=== PATIENT | male | born 1950 | race Caucasian/White ===

== ENCOUNTER 2018-08-11 11:54 | Emergency (ER) | payer MEDICARE, MEDICAID ==
[~2018-08-11] VITALS: Ht 175.3 cm; Wt 132.4 kg
[2018-08-11 12:07] VITALS: Ht 175.3 cm; Wt 132.4 kg
[2018-08-11 13:36] VITALS: BP 138/60
== END 2018-08-11 13:36 | disposition home or self-care (01) ==
LOC: ED 11:54
DX: E11.621 Type 2 diabetes mellitus with foot ulcer (principal); L97.529 Non-pressure chronic ulcer of other part of left foot with unspecified severity; I10 Essential (primary) hypertension; Z88.8 Allergy status to other drugs, medicaments and biological substances
CPT/HCPCS: Q0092

== ENCOUNTER 2018-12-12 12:53 | Emergency (ER) | payer BC ==
[~2018-12-12] VITALS: Ht 175.3 cm; Wt 132.0 kg
[2018-12-12 13:07] VITALS: Ht 175.3 cm; Wt 132.0 kg
[2018-12-12 17:04] LABS: BASOPHIL % 0.3 % (0-2); PLATELET COUNT 341 x10^3mcL (130-400)
[2018-12-12 17:11] LABS: CALCIUM 8.7 mg/dL (8.5-10.1); CARBON DIOXIDE 28.1 mmol/L (21-32); CHLORIDE SERUM 102 mmol/L (98-107); CREATININE SERUM 1.1 mg/dL (0.7-1.3); GFR1 > 60 mL/min; GLUCOSE SERUM 160 mg/dL (74-106); SODIUM SERUM 139 mmol/L (136-145)
[2018-12-12 17:14] LABS: RED CELL DISTRIBUTION WIDTH 15.8 % (11.5-14.5)
[2018-12-12 17:16] LABS: ALBUMIN 3.6 g/dL (3.4-5.0); ALKALINE PHOSPHATASE 89 U/L (46-116); ALT/SGPT 35 U/L (16-63); AST/SGOT 22 U/L (15-37); BILIRUBIN TOTAL 0.4 mg/dL (0.20-1.00); TOTAL PROTEIN, SERUM 7.9 g/dL (6.4-8.2)
[2018-12-12 19:36] LABS: UA SPECIFIC GRAVITY 1.015 (1.005-1.035); microscopic required? YES; urine erythrocyte TRACE (NEGATIVE)
[2018-12-12 19:37] VITALS: BP 148/84
[2018-12-12 19:42] LABS: AMPHETAMINE QUAL UR NONE DETECTED (See below)
== END 2018-12-12 19:37 | disposition home or self-care (01) ==
LOC: ED 12:53
PROVIDERS: Emergency Medicine
DX: R22.43 Localized swelling, mass and lump, lower limb, bilateral (principal); R80.9 Proteinuria, unspecified; J45.909 Unspecified asthma, uncomplicated; I10 Essential (primary) hypertension; E11.9 Type 2 diabetes mellitus without complications; Z88.8 Allergy status to other drugs, medicaments and biological substances
CPT/HCPCS: 36415; 83880; Q0092

== ENCOUNTER 2019-01-02 10:12 | Emergency (ER) | payer OTHER, MEDICAID ==
[~2019-01-02] VITALS: Ht 172.7 cm; Wt 132.0 kg
[2019-01-02 10:24] VITALS: Ht 172.7 cm; Wt 132.0 kg
[2019-01-02 14:47] LABS: BASOPHIL % 0.3 % (0-2); PLATELET COUNT 313 x10^3mcL (130-400)
[2019-01-02 14:51] LABS: RED CELL DISTRIBUTION WIDTH 15.9 % (11.5-14.5)
[2019-01-02 14:59] LABS: CALCIUM 8.2 mg/dL (8.5-10.1); CARBON DIOXIDE 27.6 mmol/L (21-32); CHLORIDE SERUM 107 mmol/L (98-107); CREATININE SERUM 1.2 mg/dL (0.7-1.3); GFR1 > 60 mL/min; GLUCOSE SERUM 142 mg/dL (74-106); SODIUM SERUM 140 mmol/L (136-145)
[2019-01-02 15:06] LABS: ALBUMIN 3.6 g/dL (3.4-5.0); ALKALINE PHOSPHATASE 70 U/L (46-116); ALT/SGPT 32 U/L (16-63); AST/SGOT 19 U/L (15-37); BILIRUBIN TOTAL 0.44 mg/dL (0.20-1.00); LIPASE 145 IU/L (73-393); TOTAL PROTEIN, SERUM 7.1 g/dL (6.4-8.2)
[2019-01-03 06:55] VITALS: BP 153/86
== END 2019-01-03 06:55 | disposition short-term general hospital (02) ==
LOC: ED 10:12
PROVIDERS: Emergency Medicine
DX: K59.00 Constipation, unspecified (principal); R53.1 Weakness; E11.9 Type 2 diabetes mellitus without complications; J45.909 Unspecified asthma, uncomplicated; I10 Essential (primary) hypertension; Z89.431 Acquired absence of right foot; Z75.2 Other waiting period for investigation and treatment; Z88.8 Allergy status to other drugs, medicaments and biological substances
CPT/HCPCS: 36415; J1885

== ENCOUNTER 2019-01-25 16:47 | Observation (INO) | payer OTHER, MEDICAID ==
[~2019-01-25] VITALS: Ht 177.8 cm; Wt 124.0 kg
[2019-01-25 16:57] VITALS: Ht 177.8 cm; Wt 124.0 kg
--- NOTE | 2019-01-25 17:25 | NUR ---
PT ARRIVED TO ED WITH DRY FECES TO BUTTOCK, LEGS, ABDOMEN AND PERINEAL AREA. PT CLEANED, GOOD PERICARE PROVIDED. PT IS MORBIDLY OBESE AND HAS REDNESS, DRYNESS DISCOLORATION UNDER FOLDS OF ABDOMEN, PT ALSO HAS SCATTERED DRY SCABS NOTED TO BILATERAL LEGS. PT WAS ABLE TO ASSIST WITH TURNING IN BED WHILE CLEANING.
[2019-01-25 17:39] LABS: BASOPHIL % 0.2 % (0-2); PLATELET COUNT 348 x10^3mcL (130-400); RED CELL DISTRIBUTION WIDTH 17.2 % (11.5-14.5)
--- NOTE | 2019-01-25 17:55 | NUR ---
PORTABLE X-RAY IN PROGRESS AT BEDSIDE.
[2019-01-25 18:00] LABS: CALCIUM 8.1 mg/dL (8.5-10.1); CARBON DIOXIDE 21.5 mmol/L (21-32); CHLORIDE SERUM 104 mmol/L (98-107); CREATININE SERUM 1.2 mg/dL (0.7-1.3); GFR1 > 60 mL/min; GLUCOSE SERUM 216 mg/dL (74-106); SODIUM SERUM 139 mmol/L (136-145)
[2019-01-25 18:05] LABS: ALBUMIN 3.6 g/dL (3.4-5.0); ALKALINE PHOSPHATASE 83 U/L (46-116); ALT/SGPT 29 U/L (16-63); AST/SGOT 15 U/L (15-37); BILIRUBIN TOTAL 0.3 mg/dL (0.20-1.00); TOTAL PROTEIN, SERUM 7.8 g/dL (6.4-8.2)
[2019-01-25 18:21] LABS: FREE T4 1.25 ng/dL (0.76-1.46); FREE THYROXINE INDEX 2.8 ug/dL (1.4-4.5); T4(THYROXINE) 7.7 ug/dL (4.7-13.3)
[2019-01-25 18:22] LABS: T3 TOTAL 0.84 ng/mL
[2019-01-25 18:24] LABS: ERYTHROCYTE SED RATE 29 mm/hr (0-20)
--- NOTE | 2019-01-25 18:44 | NUR ---
PT PROVIDED WITH SANDWICH AND DIET SODA PER REQUEST, PER DR. MORRISON PT OKAY TO EAT.
[2019-01-25 18:56] LABS: CK-MB 1.9 ng/mL (0-3.6)
--- NOTE | 2019-01-25 19:09 | NUR ---
REPORT GIVEN TO LUNA BECERRA.
--- NOTE | 2019-01-25 19:10 | NUR ---
REPORT RECEIVED FROM JOLENE BECERRA I WILL BE RESUMING CARE OF PT AT THIS TIME
--- NOTE | 2019-01-25 19:10 | NUR ---
PT REMINDED TO PROVIDE URINE SPECIMEN HARSHA
--- NOTE | 2019-01-25 20:16 | NUR ---
PT DAUGHTER LEFT CONTACT INFORMATION. JAMES TO BE CONTACTED AT [phone]. 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
--- NOTE | 2019-01-25 20:17 | NUR ---
PT IN POSITION OF COMFORT RESPS E/U
--- NOTE | 2019-01-25 21:00 | NUR ---
PT REMINDED TO PROVIDED URINE SPECIMEN PT STATED "I WILL TRY AGAIN BECAUSE I REALLY DON'T WANT A STRAIGHT CATH I HAVE HAD ONE BEFORE AND THEY HURT"
--- NOTE | 2019-01-25 21:20 | NUR ---
PT IN POSITION OF COMFORT RESPS E/U WATER PROVIDED
[2019-01-25] MEDS ORDERED: APAP500 MG PO (21:34)
[2019-01-25] MEDS ORDERED: ALENDRONATE SOD70 M2 PO (21:35)
[2019-01-25] MEDS ORDERED: ASPIRIN ADULT L81 M5 PO (21:36)
[2019-01-25] MEDS ORDERED: NOR10 PO (21:36)
[2019-01-25] MEDS ORDERED: LIPI10 PO (21:37)
[2019-01-25] MEDS ORDERED: CALMOSEPTINE O3.5 GM TP (21:38)
[2019-01-25] MEDS ORDERED: DICLOFENAC SODI75 MG PO (21:39)
[2019-01-25] MEDS ORDERED: FUROSEMIDE40 MG PO (21:39)
[2019-01-25] MEDS ORDERED: COLACE100 MG PO (21:39)
[2019-01-25] MEDS ORDERED: CARVEDILOL12.5 M1 PO (21:39)
[2019-01-25] MEDS ORDERED: NORCO1 TA2 PO (21:40)
[2019-01-25] MEDS ORDERED: ZESTRIL40 MG PO (21:40)
[2019-01-25] MEDS ORDERED: CLARITIN10 MG PO (21:40)
[2019-01-25] MEDS ORDERED: NEU300 PO (21:40)
[2019-01-25] MEDS ORDERED: JANUVIA100 M1 PO (21:41)
[2019-01-25] MEDS ORDERED: GOOD SENSE OMEP20 MG PO (21:41)
[2019-01-25] MEDS ORDERED: D3-50001 TAB PO (21:42)
[2019-01-25 22:27] VITALS: BP 110/61
--- NOTE | 2019-01-25 22:33 | NUR ---
RECEIVED PT FROM ED VIA [facility]GH[facility]. ORIETNED PT TO ROOM AND SURROUNDINGS. IV NOTED TO LFA PATENT AND INTACT. INSTRUCTED PT ON THE USE OF CALL LIGHT FOR ASSISTANCE. ENDORSED PT TO PRIMARY NURSE ANNA
--- NOTE | 2019-01-26 00:01 | NUR ---
RECIEVED PT FROM SURU RN IN NO ACUTE DISTRESS. MED SURG. IV TO LFA, PATENT AND INFUSING. PLACED ON AIR MATRESS. ORIENTED TO ROOM. BED IN LOWEST POSITION, 2 SIDE RAILS UP, CALL LIGHT IN REACH. INSTRUCTED TO CALL FOR ASSISTANCE.
[2019-01-26 02:30] LABS: UA SPECIFIC GRAVITY 1.015 (1.005-1.035); microscopic required? NO; urine erythrocyte NEGATIVE (NEGATIVE)
[2019-01-26 04:51] VITALS: BP 137/83
--- NOTE | 2019-01-26 06:09 | NUR ---
NO ACUTE CHANGES. NO ACUTE DISTRESS NOTED. WILL ENDORSE TO ONCOMING RN.
--- NOTE | 2019-01-26 07:53 | NUR ---
AAO TIMES 4. MED SURG PATIENT. LUNGS CTA. NO SOB. O2 SAT ON RA 99%. BS'S ACTIVE TIMES 4. WITH GENERALIZED WEAKNESS. OBESE. ON AIR MATTRESS. OPTIFOAM TO BUTTOCKS. TURNING Q 2 HOURS. COOPERATIVE.
[2019-01-26 09:00] VITALS: BP 126/90
[2019-01-26 14:06] VITALS: BP 126/90
--- NOTE | 2019-01-26 16:03 | NUR ---
REPORT WAS GIVEN TO [facility] AT [facility] AT PHONE # [phone].
[2019-01-26 16:47] VITALS: BP 135/88
--- NOTE | 2019-01-26 17:50 | NUR ---
AAO TIMES 4. GAVE HIM DISCHARGE INSTRUCTIONS, AND HE SIGNED THEM. HER VERBALIZED "I UNDERSTAND" AND KNOWS HE IS BEING TRANSFERRED. HIS DAUGHTER IS AWARE OF THE TRANSFER AND APPROVES, AND IS THANKFUL HE WILL GO GET PHYSICAL THERAPY AT [facility]. NO TELE. MED SURG PATIENT. SALINE LOCK DC'D, HE WONT NEED IT AT [facility]. NO C/O PAIN. NO SOB. ON AIR MATTRESS.
--- NOTE | 2019-01-26 20:00 | NUR ---
PT A/A/O X4. DENIES DIZZINESS AND HEADACHE. BREATH SOUNDS CLEAR. BREATHING EVEN AND UNLABORED ON ROOM AIR. DENIES CHEST PAIN AND PRESSURE. BOWEL SOUNDS ACTIVE. NO C/O N/V AND ABD PAIN. OPTIFOAM NOTED ON THE BUTTOCKS. ON AIR MATTRESS. MADE PT COFMORTABLE. PLACED CALL LIGHT WITH IN REACH. WAITING FOR THE PT TO BE PICKED UP BY [facility] TO BE TRANSFFERED TO [place]. WILL CONTINUE TO MONITOR.
--- NOTE | 2019-01-26 21:35 | NUR ---
PT C/O HEADACHE. GAVE PT TYLENOL PO. PT TOLERATED IT WELL. WILL CONTINUE TO MONITOR.
--- NOTE | 2019-01-26 22:27 | NUR ---
CALLED [facility] AND SPOKE WITH EVE TO UPDATE THEM THAT THE PT IS GOING TO BE PICKED UP APPROXIMATELY 30 MINUTES TO AN HOUR. AND THE NIGHT MEDICATION WAS GIVEN TO THE PT ALREADY. INFORMED THEM THAT THEY WILL BE CALLED WHEN THE PT IS PICKED UP. [facility] VERBALIZED UNDERSTADING.
--- NOTE | 2019-01-27 00:49 | NUR ---
PT WAS PICKED UP BY [facility]. AWAKE AND ALERT WITH NO C/O PAIN AND DISCOMFORT THUS FAR.
--- NOTE | 2019-01-27 07:42 | NUR ---
WOUND CARE EVALUATION NOT DONE, PT. DISCHARGED.
== END 2019-01-27 00:51 | DRG 641 ==
LOC: ED 16:47 → MU 21:08
PROVIDERS: Specialist; ADMIT Internal Medicine Pulmonary Disease
DX: E86.0 Dehydration (principal); R62.7 Adult failure to thrive; R54 Age-related physical debility; G89.29 Other chronic pain; M19.90 Unspecified osteoarthritis, unspecified site; E11.40 Type 2 diabetes mellitus with diabetic neuropathy, unspecified; E78.5 Hyperlipidemia, unspecified; E66.01 Morbid (severe) obesity due to excess calories; Z86.73 Personal history of transient ischemic attack (TIA), and cerebral infarction without residual deficits
CPT/HCPCS: 82962; 84439; 97530-GP; G0378; J2270; J2405; J7030; Q0092